=== PATIENT | male | born 1970 | race Caucasian/White ===

== ENCOUNTER → 2017-04-01 16:56 | Outpatient (CLI) | payer BC ==
[2011-09-24 06:47] VITALS: BMI 42.6
== END | disposition home or self-care (01) ==
LOC: D.LABREF 16:56
DX: J32.0 Chronic maxillary sinusitis (principal)

== ENCOUNTER 2017-04-17 05:25 | Day surgery (SDC) | payer BC ==
[~2017-04-17] VITALS: Ht 186.7 cm; Wt 131.5 kg
[~2017-04-17 05:25] MED LIST: GABAPENTIN100 MG PO; GLUCOPHAGE1000 MG PO; LEVEMIR100 U/M1 SC; LISINOPRIL10 MG PO
[2017-04-17 05:54] LABS: HEMOGLOBIN 17.6 g/dL (13.5-17.5); MCHC 33.2 g/dL (31.0-37.0); MCV 87.3 fL (80.0-100.0); MEAN PLATELET VOLUME 10.3 fL (7.4-10.4); RBC 6.07 10x6/uL (4.20-6.10); RDW 12.8 % (11.5-14.5)
[2017-04-17 06:21] LABS: ANION GAP 11.3 mmol/L (8-16); CALCIUM 9.7 mg/dL (8.5-10.1); CARBON DIOXIDE 31.2 mmol/L (21.0-32.0); CREATININE - SERUM 1.5 mg/dL (0.6-1.3); POTASSIUM - SERUM 4.5 mmol/L (3.5-5.1)
[2017-04-17 07:44] VITALS: BP 104/78; Ht 186.7 cm; Wt 131.5 kg
--- NOTE | 2017-04-17 14:25 | NUR ---
1305--PT COMPLAINS OF DISCOMFORT, ASKES IF HE CAN BE MEDICATED BEFORE [facility] HOME, RATES PAIN 12/01, NORCO 5/325MG GIVEN PO. [address] 6640--DISCHARGE INSTRUCTIONS GIVEN, PT VERBALIZES UNDERSTANDING. PT OFF UNIT VIA WC. JANNETTE OSBORN
[2017-04-18 20:07] LABS: ACID FAST SMEAR Negative (()); AFB SPECIMEN PROCESSING Concentration (())
[2017-04-20 11:13] LABS: FUNGUS STAIN Final report (())
--- NOTE | 2017-04-20 15:54 | OP ---
PATIENT NAME: KRISTINA ROBBINS MEDICAL RECORD: [id number] :68 LOCATION:[facility] ADMISSION DATE: SURGEON: LEOPOLDO MCGOVERN MD DATE OF OPERATION: 04/17/2017 PREOPERATIVE DIAGNOSES: Left chronic maxillary and ethmoid sinusitis. POSTOPERATIVE DIAGNOSES: Left chronic maxillary and ethmoid sinusitis. PROCEDURE: 1. Endoscopic left middle meatal antrostomy with removal of solid material from the sinus. 2. Left endoscopic ethmoidectomy. SURGEON: Leopoldo Mcgovern MD ANESTHESIA: General orotracheal. BLOOD LOSS: 5 cc. SPECIMENS: Cultures and the path from the left maxillary sinus contents. COMPLICATIONS: None. PACKING: None. DISPOSITION: Recovery stable. DESCRIPTION OF PROCEDURE: He was brought to the operating room and placed in supine position, sedated and intubated by anesthesia. Head drape was applied. The table was turned, he was positioned, prepped and draped in usual fashion for nasal surgery. He had already been decongested with Afrin preoperatively. Using a headlight and nasal speculum, the left inferior turbinate, uncinate, tip of the root of the middle turbinate and floor of the nose were injected with a total of 1 cc of 1% lidocaine with 1:100,000 epinephrine, 3 Afrin pledgets were placed in the left side of the nose and one on the floor of the right side of the nose as well. After waiting for decongestion, all the Afrin pledgets were removed from both sides of the nose. A 0 degrees scope was used to examine the right side of the nose; first, the inferior turbinate were normal, nasal vault, floor of the nose, septum and nasopharynx were all normal. No masses, polyps, or drainage. Then, the left side was addressed with Afrin pledgets out. The inferior turbinate anteriorly was normal. There was a lot of purulence that was suctioned and then the nasal vault anterior to the root middle turbinate was normal, but the middle meatus was full of polyps. A pediatric straight biting forceps was used to remove several retail account representative pieces of nasal polyps and then a microdebrider was inserted and used to take down the polyps to expose the anterior tip of the middle turbinate in the middle meatus. Once that was done, the middle turbinate was already crushed against the septum. A microdebrider was used to take down all this thickened and polypoid tissue and expose basically a large hole that eroded through the maxillary sinus and lateral nasal wall and there was obvious thick green, brown material consistent with allergic fungal sinusitis extruding from that maxillary sinus. A Cecilia trap and large curved olive suction was used to evacuate as much material as possible from that sinus and they gave better visualization of the lateral nasal wall. A longer curved olive tip suction was used to break up some material in there and it was OPERATIVE REPORT [id number] ROSENDOKRISTINA RAFA again suctioned and irrigated repeatedly until all of the material could be removed, some of it was sent for pathology, some of it for cultures including AFB fungal. I then used a 30-degree scope to get into the sinus and make sure that all of the materials were removed. The mucosa was red and irritated with some edema, but not too bad. The sinus was completely empty. Then, the ethmoid bulla was entered inferomedially with the microdebrider. There was a lot of polypoid tissue anteriorly and ethmoid. This was taken down, cleaned up and removed through into the ethmoids little bit posteriorly until the sinuses were normal. None of this material was in the ethmoid sinuses, it was all just in the maxillary sinus. The frontal duct appeared clear, although it did not manipulate it. The whole area was then irrigated again repeatedly using 30 cc syringe and curved olive tip suction, it was irrigated dozen of times to clean everything out completely the pharynx. Nasopharynx was suctioned, ethmoid cavity and the maxillary sinus was repeatedly irrigated and suctioned until everything was clean. There was no bleeding. Pediatric upbiting forceps was used to clean up any little bony edges making sure everything was smooth, then some mupirocin ointment was screwed into the left maxillary sinus using a curved olive tip suction about 2 cc was put in there and then both sides of the nasopharynx was suctioned posteriorly. Both inferior turbinate was outfractured slightly with a Holt elevator. He was awakened, extubated, and transported to recovery in good condition. No complications. TRANSINT:[id number] Voice Confirmation ID: [id number] DOCUMENT ID: [id number] LEOPOLDO MCGOVERN MD at 1554 CC: [id number] DICTATION DATE: 04/17/17 1051 RETAIL ACCOUNT REPRESENTATIVE: 04/17/17 1606 [facility] 04/17/17 [facility] [address] [place] [address]
--- NOTE | 2017-04-20 15:54 | HP ---
PATIENT: TOÑITO ROBBINS MEDICAL RECORD: [id number] ACCOUNT: [id number] LOCATION:[facility] : 68 ADMISSION DATE: 04/17/17 HISTORY AND PHYSICAL EXAMINATION Preoperative History and Physical HISTORY OF PRESENT ILLNESS: Toñito is a 47-year-old male with chronic sinus drainage from the left side of the nose. CT showed severe left maxillary and ethmoid disease with bony destruction. He is being admitted for left-sided sinus surgery. PAST MEDICAL HISTORY: Includes diabetes and hypertension. PAST SURGICAL HISTORY: Includes 5 back surgeries, 2 knee surgeries, 2 heal surgeries and neurostimulator for his back in 2014. CURRENT MEDICATIONS: Include metformin, lisinopril, gabapentin, and Levemir. ALLERGIES: No known drug allergies. PHYSICAL EXAMINATION: GENERAL: Normal. FACE: Normal, symmetric, no lesions. EYES: Sclerae and conjunctivae are normal. EARS: Canals and TMs are normal. NOSE: He has got some drainage on the left side. No visible masses or polyps. ORAL CAVITY AND OROPHARYNX: Normal. NECK: No masses, adenopathy. CHEST: Clear. CARDIOVASCULAR: Regular rate and rhythm, no murmur. EXTREMITIES: Normal. DIAGNOSTIC DATA: CT shows complete opacification of left maxillary sinus with destruction of the bony lateral nasal wall on left side as well as opacification of some of the anterior ethmoids. IMPRESSION: Left chronic maxillary and ethmoid sinusitis. PLAN: Left endoscopic middle meatal antrostomy, anterior ethmoidectomy. TRANSINT:[id number] Voice Confirmation ID: [id number] DOCUMENT ID: [id number] LEOPOLDO MCGOVERN MD at 1554 CC: [id number] DICTATION DATE: 04/16/17 1128 VISCOSITY WORKER: 04/16/17 1148 [facility] 04/17/17 [place] [id number]
== END 2017-04-17 13:30 | disposition home or self-care (01) ==
LOC: D.OPS 05:25 → D.PAN 08:00 → D.OPS 08:00 → D.PAN 08:15 → D.OPS 13:30
PROVIDERS: Anesthesiology; Otolaryngology
DX: J32.2 Chronic ethmoidal sinusitis (principal); J32.0 Chronic maxillary sinusitis; I10 Essential (primary) hypertension; E11.9 Type 2 diabetes mellitus without complications; Z01.812 Encounter for preprocedural laboratory examination